=== PATIENT | male | born 1985 | race Caucasian/White ===

== ENCOUNTER 2023-05-04 20:05 | Emergency (ER) | payer OTHER ==
--- NOTE | 2023-05-04 20:26 | ED ---
General Adult HPI - General Source: patient Mode of arrival: ambulatory Limitations: no limitations <Soren Tran - Last Filed: 05/04/23 20:25> - General Source: patient, RN notes reviewed Mode of arrival: ambulatory Limitations: no limitations <Belkys Faria - Last Filed: 05/04/23 22:27> - General Stated complaint: back pain headache body aches Time Seen by Provider: 05/04/23 20:25 - History of Present Illness Initial comments: 37-year-old male presenting with chief complaint of flulike symptoms. (Soren Tran) Patient is a 37-year-old male presented to ER with chief complaint of bodyaches and cough. Patient states this started yesterday. He also was endorsing chills, congestion, myalgias. Patient denies any chest pain or shortness of breath. He states he has been taking [id number] Motrin with no relief. Patient has no significant past medical history. Patient is an everyday smoker. (Belkys Faria) - Related Data Home Medications Medication Instructions Recorded Confirmed Dextroamphetamine/Amphetamine 15 mg PO BID 11/10/21 11/10/21 [Dextroamp-Amphetamin 15 mg Tab] lamoTRIgine [LaMICtal] 25 mg PO DIRECTED 11/10/21 11/10/21 Previous Rx's Medication Instructions Recorded Oseltamivir [Tamiflu] 75 mg PO Q12HR #10 cap 05/04/23 Allergies Allergy/AdvReac Type Severity Reaction Status Date / Time Latex, Natural Rubber Allergy Rash/Hives Verified 11/10/21 21:25 Review of Systems ROS Other: All systems not noted in ROS Statement are negative. <Soren Tran - Last Filed: 05/04/23 20:25> ROS Other: All systems not noted in ROS Statement are negative. <Belkys Faria - Last Filed: 05/04/23 22:27> ROS Statement: Those systems with pertinent positive or pertinent negative responses have been documented in the HPI. Past Medical History Past Medical History: No Reported History Additional Past Medical History / Comment(s): MCA- 3 day coma History of Any Multi-Drug Resistant Organisms: None Reported Additional Past Surgical History / Comment(s): right hand surgery due to a hematoma Past Psychological History: ADD/ADHD, Anxiety, Depression Smoking Status: Current every day smoker Past Alcohol Use History: Rare Past Drug Use History: Marijuana <Soren Tran - Last Filed: 05/04/23 20:25> General Exam <Soren Tran - Last Filed: 05/04/23 20:25> General appearance: alert, in no apparent distress Head exam: Present: atraumatic, normocephalic, normal inspection Eye exam: Present: normal appearance, PERRL, EOMI. Absent: scleral icterus, conjunctival injection, periorbital swelling ENT exam: Present: normal exam, normal oropharynx, mucous membranes moist, TM's normal bilaterally Neck exam: Present: normal inspection. Absent: tenderness, meningismus, lymphadenopathy Respiratory exam: Present: normal lung sounds bilaterally. Absent: respiratory distress, wheezes, rales, rhonchi, stridor Cardiovascular Exam: Present: regular rate, normal rhythm, normal heart sounds. Absent: systolic murmur, diastolic murmur, rubs, gallop, clicks GI/Abdominal exam: Present: soft, normal bowel sounds. Absent: distended, tenderness, guarding, rebound, rigid Neurological exam: Present: alert, oriented X3, CN II-XII intact Psychiatric exam: Present: normal affect, normal mood Skin exam: Present: warm, dry, intact, normal color, diaphoretic (Mild). Absent: rash <Belkys Faria - Last Filed: 05/04/23 22:27> - General Exam Comments Initial Comments: Visual Physical Exam Vital signs reviewed General: Well-appearing, nontoxic, no acute distress. Head: Normocephalic, atraumatic Eyes: PERRLA, EOMI ENT: Airway patent Chest: Nonlabored breathing Skin: No visual rash, normal skin tone Neuro: Alert and oriented 3 Musculoskeletal: No gross abnormalities (Soren Tran) Course Vital Signs 05/04/23 20:23 Temperature 99.6 F Pulse Rate 117 H Respiratory 20 Rate Blood Pressure 127/74 O2 Sat by Pulse 97 Oximetry Medical Decision Making <Soren Tran - Last Filed: 05/04/23 20:25> <Belkys Faria - Last Filed: 05/04/23 22:27> - Medical Decision Making I performed the quick note portion of this visit, electronically signed Soren Monet PA-C) Was pt. sent in by a medical professional or institution (, GERRI, LAB SPECIALIST, urgent care, hospital, or correction...) When possible be specific @ -No Did you speak to anyone other than the patient for history (EMS, parent, family, police, friend...)? What history was obtained from this source @ -No Did you review nursing and triage notes (agree or disagree)? Why? @ -I reviewed and agree with nursing and triage notes Were old charts reviewed (outside hosp., previous admission, EMS record, old EKG, old radiological studies, urgent care reports/EKG's, correction records)? Report findings @ -No old charts were reviewed Differential Diagnosis (chest pain, altered mental status, abdominal pain women, abdominal pain men, vaginal bleeding, weakness, fever, dyspnea, syncope, headache, dizziness, GI bleed, back pain, seizure, CVA, palpatations, mental health, musculoskeletal)? @ -COVID, RSV, influenza, viral sinusitis, pneumonia this list is not meant to be all-inclusive EKG interpreted by me (3pts min.). @ -None X-rays interpreted by me (1pt min.). @ -None done CT interpreted by me (1pt min.). @ -None done U/S interpreted by me (1pt. min.). @ -None done What testing was considered but not performed or refused? (CT, X-rays, U/S, labs)? Why? @ -None What meds were considered but not given or refused? Why? @ -None Did you discuss the management of the patient with other professionals (professionals i.e. GERRI Mercado, LAB SPECIALIST, lab, RT, psych nurse, social service coordinator, enrollment management director, teacher, second officer, nurse outreach case manager)? Give summary @ -No Was smoking cessation discussed for >3mins.? @ -I discussed smoking cessation for greater than 3 minutes. The risk of smoking were discussed with the patient including but not limited to risks of cancer, stroke, coronary artery disease and COPD. Also discussed with patient were multiple methods of quitting smoking. Lastly we discussed the financial cost of smoking. Was critical care preformed (if so, how long)? @ -No Were there social determinants of health that impacted care today? How? (Homelessness, low income, unemployed, alcoholism, drug addiction, transportation, low edu. Level, literacy, decrease access to med. care, skilled nursing, rehab)? @ -No Was there de-escalation of care discussed even if they declined (Discuss DNR or withdrawal of care, Hospice)? DNR status @ -No What co-morbidities impacted this encounter? (DM, HTN, Smoking, COPD, CAD, Cancer, CVA, ARF, Chemo, Hep., AIDS, mental health diagnosis, sleep apnea, morbid obesity)? @ -Smoking Was patient admitted / discharged? Hospital course, mention meds given and route, prescriptions, significant lab abnormalities, going to OR and other pertinent info. @ -Discharge. Patient is a 37-year-old male presented to ER with chief complaint of myalgias and cough. History and physical exam were completed. Vitals stable. Patient no signs of acute distress and nontoxic-appearing. Lung sounds clear to auscultation bilaterally. Cepheid obtained. COVID and influenza A positive. RSV negative. Patient received by mouth Tylenol for fever and symptom control. I discussed lab findings with patient. All questions answered. I discussed smoking cessation for greater than 3 minutes. The risk of smoking were discussed with the patient including but not limited to risks of cancer, stroke, coronary artery disease and COPD. Also discussed with patient were multiple methods of quitting smoking. Lastly we discussed the financial cost of smoking. Advised [id number] Tylenol and Motrin for symptom control. Patient prescribed Tamiflu. Return parameters were discussed. Patient be discharged stable condition with follow-up with PCP. Patient expressed understanding and agreement with care plan. Undiagnosed new problem with uncertain prognosis? @ -No Drug Therapy requiring intensive monitoring for toxicity (Heparin, Nitro, Insulin, Cardizem)? @ -No Were any procedures done? @ -No Diagnosis/symptom? @ -COVID-19/influenza A Acute, or Chronic, or Acute on Chronic? @ -Acute Uncomplicated (without systemic symptoms) or Complicated (systemic symptoms)? @ -Uncomplicated Side effects of treatment? @ -No Exacerbation, Progression, or Severe Exacerbation? @ -No Poses a threat to life or bodily function? How? (Chest pain, [place], [place], pneumonia, PE, COPD, DKA, ARF, appy, cholecystitis, CVA, Diverticulitis, Homicidal, Suicidal, threat to staff... and all critical care pts) @ -No (Belkys Faria) - Lab Data Lab Results 05/04/23 Range/Units 20:31 Influenza Type A (PCR) Detected A (Not Detectd) Influenza Type B (PCR) Not Detected (Not Detectd) RSV (PCR) Not Detected (Not Detectd) SARS-CoV-2 (PCR) Detected A (Not Detectd) Disposition <Soren Tran - Last Filed: 05/04/23 20:25> Is patient prescribed a controlled substance at d/c from ED?: No Time of Disposition: 21:49 <Belkys Faria - Last Filed: 05/04/23 22:27> Clinical Impression: COVID-19, Influenza A Disposition: HOME SELF-CARE Condition: Stable Instructions (If sedation given, give patient instructions): Upper Respiratory Infection (ED) Additional Instructions: Please alternate Tylenol and Motrin every 4-6 hours for fever and symptom control. Return to the ER for any new or worsening symptoms. Prescriptions: Oseltamivir [Tamiflu] 75 mg PO Q12HR #10 cap Referrals: Medhat Frazier MD [Primary Care Provider] - 1-2 days
[2023-05-04 20:28] VITALS: BP 127/74; PULSE 117; RESP 20; TEMP 99.6
[2023-05-04] MEDS: ACETAMINOPHEN TAB 325 MG TAB PO STA (21:59)
== END 2023-05-04 22:02 | disposition home or self-care (01) ==
LOC: EC 20:05
DX: U07.1 COVID-19 (principal); J10.1 Influenza due to other identified influenza virus with other respiratory manifestations; F41.9 Anxiety disorder, unspecified; F32.A Depression, unspecified; F90.9 Attention-deficit hyperactivity disorder, unspecified type; F17.200 Nicotine dependence, unspecified, uncomplicated; F12.90 Cannabis use, unspecified, uncomplicated; Z79.899 Other long term (current) drug therapy; Z91.040 Latex allergy status
CPT/HCPCS: 87636; 99284; 99406

== ENCOUNTER 2023-08-20 08:26 | Emergency (ER) | payer OTHER ==
--- NOTE | 2023-08-20 08:47 | ED ---
ENT HPI - General Chief complaint: Dental/Oral Stated complaint: dental pain Time Seen by Provider: 08/20/23 08:44 Source: patient Mode of arrival: ambulatory Limitations: no limitations - History of Present Illness Initial comments: 38-year-old male presented to the ER with a chief complaint of dental pain. Patient reports for the last week he has been experiencing left lower jaw tooth pain. He states he broke his tooth and now believes the nerve is exposed as his tooth continues to break. He denies any drainage, swelling, difficulty breathing or fevers. He reports he is trying to following up with a dentist next week. Patient denies any other complaints. - Related Data Home Medications Medication Instructions Recorded Confirmed Dextroamphetamine/Amphetamine 15 mg PO BID 11/10/21 11/10/21 [Dextroamp-Amphetamin 15 mg Tab] lamoTRIgine [LaMICtal] 25 mg PO DIRECTED 11/10/21 11/10/21 Previous Rx's Medication Instructions Recorded Oseltamivir [Tamiflu] 75 mg PO Q12HR #10 cap 05/04/23 Amoxicillin 875 mg PO Q12HR #20 tablet 08/20/23 Benzocaine 20 % Gel [Orajel] 1 gm MM Q2-3H #60 gm 08/20/23 Allergies Allergy/AdvReac Type Severity Reaction Status Date / Time Latex, Natural Rubber Allergy Rash/Hives Verified 08/20/23 08:32 Review of Systems ROS Statement: Those systems with pertinent positive or pertinent negative responses have been documented in the HPI. ROS Other: All systems not noted in ROS Statement are negative. Past Medical History Past Medical History: No Reported History Additional Past Medical History / Comment(s): MCA- 3 day coma History of Any Multi-Drug Resistant Organisms: None Reported Additional Past Surgical History / Comment(s): right hand surgery due to a hematoma Past Psychological History: ADD/ADHD, Anxiety, Depression Smoking Status: Current every day smoker Past Alcohol Use History: Rare Past Drug Use History: Marijuana General Exam Limitations: no limitations General appearance: alert, in no apparent distress Head exam: Present: atraumatic, normocephalic, normal inspection Eye exam: Present: normal appearance, PERRL, EOMI. Absent: scleral icterus, conjunctival injection, periorbital swelling ENT exam: Present: normal exam, mucous membranes moist, other (3 fractured left lower molars. No erythema, drainage or abscess present.) Neck exam: Present: normal inspection. Absent: tenderness, meningismus, lymphadenopathy Respiratory exam: Present: normal lung sounds bilaterally. Absent: respiratory distress, wheezes, rales, rhonchi, stridor Cardiovascular Exam: Present: regular rate, normal rhythm, normal heart sounds. Absent: systolic murmur, diastolic murmur, rubs, gallop, clicks Skin exam: Present: warm, dry, intact, normal color. Absent: rash Course Vital Signs 08/20/23 08:30 Temperature 97.4 F L Pulse Rate 106 H Respiratory 20 Rate Blood Pressure 126/82 O2 Sat by Pulse 99 Oximetry Medical Decision Making - Medical Decision Making Was pt. sent in by a medical professional or institution (, PA, OCCASIONAL CAREGIVER, urgent care, hospital, or intermediate...) When possible be specific @ -No Did you speak to anyone other than the patient for history (EMS, parent, family, police, friend...)? What history was obtained from this source @ -No Did you review nursing and triage notes (agree or disagree)? Why? @ -I reviewed and agree with nursing and triage notes Were old charts reviewed (outside hosp., previous admission, EMS record, old EKG, old radiological studies, urgent care reports/EKG's, intermediate records)? Report findings @ -No old charts were reviewed Differential Diagnosis (chest pain, altered mental status, abdominal pain women, abdominal pain men, vaginal bleeding, weakness, fever, dyspnea, syncope, headache, dizziness, GI bleed, back pain, seizure, CVA, palpatations, mental health, musculoskeletal)? @ -Dental caries, tooth fracture, tooth ache, Ludwigs angina dental abscess this list is not meant to be all-inclusive EKG interpreted by me (3pts min.). @ -None X-rays interpreted by me (1pt min.). @ -None done CT interpreted by me (1pt min.). @ -None done U/S interpreted by me (1pt. min.). @ -None done What testing was considered but not performed or refused? (CT, X-rays, U/S, labs)? Why? @ -None What meds were considered but not given or refused? Why? @ -None Did you discuss the management of the patient with other professionals (professionals i.e. , PA, OCCASIONAL CAREGIVER, lab, RT, psych nurse, pediatric social worker, tankage grinder operator, teacher, seaman officer, insurance case manager)? Give summary @ -No Was smoking cessation discussed for >3mins.? @ -I discussed smoking cessation for greater than 3 minutes. The risk of smoking were discussed with the patient including but not limited to risks of cancer, stroke, coronary artery disease and COPD. Also discussed with patient were multiple methods of quitting smoking. Lastly we discussed the financial cost of smoking. Was critical care preformed (if so, how long)? @ -No Were there social determinants of health that impacted care today? How? (Homelessness, low income, unemployed, alcoholism, drug addiction, transportation, low edu. Level, literacy, decrease access to med. care, skilled nursing, rehab)? @ -No Was there de-escalation of care discussed even if they declined (Discuss DNR or withdrawal of care, Hospice)? DNR status @ -No What co-morbidities impacted this encounter? (DM, HTN, Smoking, COPD, CAD, Cancer, CVA, ARF, Chemo, Hep., AIDS, mental health diagnosis, sleep apnea, morbid obesity)? @ -Smoker Was patient admitted / discharged? Hospital course, mention meds given and route, prescriptions, significant lab abnormalities, going to OR and other p ertinent info. @ -Discharge. 38 year old male presenting to the ER with a chief complaint of dental pain. History and physical exam completed. Vitals stable. Physical exam significant for 3 fractured left lower molars. No drainable abscess present. Open oropharynx. Patient no signs of acute distress and nontoxic-appearing. Findings discussed with patient, all questions answered. I advise close follow- up with a dentist, referral given. Patient will be started on amoxicillin. Starter pack of Tylenol 3 given I instructed patient to alternate this with [id number] ibuprofen. Return parameters discussed. Patient discharged in stable condition. Patient verbally expressed understanding and agreement with care plan. Case discussed with ED attending, Dr. Philippe. Undiagnosed new problem with uncertain prognosis? @ -No Drug Therapy requiring intensive monitoring for toxicity (Heparin, Nitro, Insulin, Cardizem)? @ -No Were any procedures done? @ -No Diagnosis/symptom? @ -Fractured tooth/tooth ache Acute, or Chronic, or Acute on Chronic? @ -Acute Uncomplicated (without systemic symptoms) or Complicated (systemic symptoms)? @ -Uncomplicated Side effects of treatment? @ -No Exacerbation, Progression, or Severe Exacerbation? @ -No Poses a threat to life or bodily function? How? (Chest pain, [place], [place], pneumonia, PE, COPD, DKA, ARF, appy, cholecystitis, CVA, Diverticulitis, Homicidal, Suicidal, threat to staff... and all critical care pts) @ -Low likelihood Disposition Clinical Impression: Fracture of tooth, Toothache Disposition: HOME SELF-CARE Condition: Stable Instructions (If sedation given, give patient instructions): Toothache (ED) Additional Instructions: Follow-up with a dentist as soon as possible. Complete full course of antibiotics. Continue with ibuprofen and Tylenol for pain control. Only take tylenol 3s for extreme pain. Return to the ER for any new or worsening concerns. Prescriptions: Amoxicillin 875 mg PO Q12HR #20 tablet Benzocaine 20 % Gel [Orajel] 1 gm MM Q2-3H #60 gm Is patient prescribed a controlled substance at d/c from ED?: No Referrals: Medhat Frazier MD [Primary Care Provider] - 1-2 days Ryan Abdalla DDS [STAFF PHYSICIAN] - 1-2 days Rin Coreas DDS [STAFF PHYSICIAN] - 1-2 days Time of Disposition: 08:46
[2023-08-20] MEDS: ACET/COD 300 MG/30 MG STARTER PACK 6 TAB BTL PO STA (08:57)
[2023-08-20 09:17] VITALS: BP 126/82; PULSE 106; RESP 20; TEMP 97.4
== END 2023-08-20 09:04 | disposition home or self-care (01) ==
LOC: EC 08:26
DX: S02.5XXA Fracture of tooth (traumatic), initial encounter for closed fracture (principal); F17.200 Nicotine dependence, unspecified, uncomplicated; Z91.040 Latex allergy status; X58.XXXA Exposure to other specified factors, initial encounter
CPT/HCPCS: 99282; 99406